=== PATIENT | male | born 1960 | race Caucasian/White ===

== ENCOUNTER 2022-12-17 15:03 | Emergency (ER) | payer OTHER ==
[~2022-12-17] VITALS: Ht 172.7 cm; Wt 98.4 kg
[2022-12-17 17:16] LABS: BASO % 0.4 % (0.0-1.0); EOS # 0.1 10*3/uL (0.0-0.4); EOS % 0.7 % (1.0-4.0); HEMATOCRIT 51.5 % (42.0-52.0); LYMPH # 1.8 10*3/uL (1.3-4.4); LYMPH % 16.9 % (27.0-41.0); MEAN CELL VOLUME 94.5 fl (80.0-94.0); MEAN CORPUSCULAR HGB 32.7 pg (27.0-31.0); MEAN CORPUSCULAR HGB CONC 34.6 g/dl (33.0-37.0); MONO # 0.7 10*3/uL (0.1-1.0); MONO % 6.3 % (3.0-9.0); NEUT # 8.1 10*3/uL (2.3-7.9); NEUT % 75.2 % (47.0-73.0); PLATELET COUNT AUTOMATED 303 10*3/uL (130-400); RED BLOOD COUNT 5.45 10*6/uL (4.50-5.90); RED CELL DISTRI WIDTH 12.2 % (0-14.5); WHITE BLOOD COUNT 10.7 10*3/uL (4.8-10.8)
[2022-12-17 17:30] LABS: ALKALINE PHOSPHATASE 97 U/L (46-116); BUN 10 mg/dl (9-23); CHLORIDE 106 mmol/L (98-107); SGPT/ALT 23 U/L (10-49); TOTAL PROTEIN 7.9 gm/dL (6.0-8.0)
[2022-12-17] MEDS ORDERED: COZAAR50 M1 PO (18:46)
== END 2022-12-17 18:55 | disposition home or self-care (01) ==
LOC: ED 15:03
PROVIDERS: Emergency Medicine
DX: R07.89 Other chest pain (principal); I10 Essential (primary) hypertension